=== PATIENT | female | born 2000 | race Caucasian/White ===

== ENCOUNTER 2022-03-17 14:49 | Outpatient (CLI) | payer BC, SELFPAY ==
--- OUTSIDE RECORDS SUMMARY | 2022-03-17 14:56 | XMS_ITS | Encounter Summary ---
:2000 [facility] Address [address], [place] [address] Care Team Providers Name Role Phone Unassigned, Provider Primary Care Provider Unavailable Reason for Visit Procedure/Equipment (Routine) - Incomplete Specialty Diagnoses / Procedures Referred By Contact Refer red To Contact Procedures Gamaliel Valentine MD Foreign Image(S) MR Extremity [id number] [facility] [place] [address] Referral ID Status Reason Start Date Expiration Date Visits V isits Requested Authorized [id number] Incomplete 06/07/2017 09/06/2018 1 1 Encounter Details Date Type Department Care Team Description 05/24/2017 Imaging [id number] RADIOLOGY CENTRAL FILM Mor Gamaliel lopez MD LIBRARY [address] [facility] [place] [address] [place] [address] [phone] (Work) Social History Tobacco Use Types Packs/Day Years Used Date Smoking Tobacco: Never Assessed Sex Assigned at Date Recorded Not on file documented as of this encounter Plan of Treatment Not on filedocumented as of this encounter Procedures Procedure Name Priority Date/Time Associated Diagnosis Comme nts FOREIGN IMAGE(S) MR Routine 05/24/2017 12:00 AM R esults for this EXTREMITY LT OFFSET PRESS ASSISTANT procedure are i n the results section. documented in this encounter Results Foreign Image(S) MR Extremity Lt (05/24/2017 12:00 AM OFFSET PRESS ASSISTANT) Specimen (Source) Anatomical Location Collection Method / Collectio n Time Received Time / Laterality Volume Narrative PN POCT - 06/07/2017 10:13 AM OFFSET PRESS ASSISTANT These outside images have been uploaded into PACS. If the results were provided, they will be located on the Me mariel tab in the patient's chart. Gamaliel Valentine MD RAD NON-REPORTABLES Performing Organization Address City/State/ZIP Code Phon e Number POCT PN POCT documented in this encounter Visit Diagnoses Not on filedocumented in this encounter Care Teams Manager Provider Relations Relationship Specialty Start Date End Date Unassigned, Provider PCP - General 06/12/[address] [place] [address] documented as of this encounter
--- OUTSIDE RECORDS SUMMARY | 2022-03-17 14:56 | XMS_ITS | Clinical Summary ---
:2000 Author Organization [facility] Address [address], [place] [address] Care Team Providers Name Role Phone Unassigned, Provider Primary Care Provider Unavailable Source Comments You are receiving this document as you are listed as the primary care provider,follow-up provider, or the patient has been referred to you for consultation.This is in compliance with the Medicare and Medicaid EHR Incentive Program,which states Providers who transition their patient to another setting of careor provider of care or refers their patient to another provider of care shouldprovide summarycare record for each transition of care or referral. [facility] Allergies No known active allergies Medications Medication Sig Dispensed Refills Start Date End Date Status azithromycin (ZITHROMAX) 250 MG 0 05/18/20 17 Active tablet STEVENSON FE 1.5 1.5-30 MG-MCG tablet 0 05/2017 Active desonide (DESOWEN) 0.05 % cream 0 05/21/20 17 Active Active Problems No known active problems Social History Tobacco Use Types Packs/Day Years Used Date Smoking Tobacco: Never Smokeless Tobacco: Never Sex Assigned at Date Recorded Not on file Last Filed Vital Signs Vital Sign Reading Time Taken Comments Blood Pressure - - Pulse - - Temperature - - Respiratory Rate - - Oxygen Saturation - - Inhaled Oxygen Concentration - - Weight 68.9 kg (152 lb) 06/07/2017 10:29 AM MILLINER HELPER Height 172.7 cm (5' 8) 06/07/2017 10:29 AM MILLINER HELPER Body Mass Index 23.11 06/07/2017 10:29 AM MILLINER HELPER Plan of Treatment Health Maintenance Due Date Last Done Comments Cervical Cancer Screening Due 1998 Chlamydia 1998 Hep C Screening (Preventive 1998 Services) HepB (1) 1998 COVID-19 Vaccine (#1) 1998 HPV Vaccine (1 - 2-dose series) 2009 HIV Screening (Preventive 2014 Services) Adult Preventive Visit 2016 DTaP/Tdap/Td (1 - Tdap) 2017 Influenza (#1) 2022 Zoster/Shingles (1 of 2) 2048 HepA Aged Out No longer eligib le based on patient's age to complete this topic Hib Aged Out No longer eligib le based on patient's age to complete this topic IPV (Polio) Aged Out No longer eligib le based on patient's age to complete this topic MCV4 Aged Out No longer eligib le based on patient's age to complete this topic Pneumococcal Aged Out No longer eligib le based on patient's age to complete this topic Insurance Payer Benefit Plan / Subscriber ID Effective Dates Phone Addre ss Type Group BCBS BCBS OUT OF [id number] 2014-Present [address] [address] [place] [address] MarkellLorenzo Personal/Family 07/31/1967 [address] [facility] (Home) [phone] [place], [place] (Work) [address] Care Teams Nurse Assessor Relationship Specialty Start Date End Date Unassigned, Provider PCP - General 06/12/[address] [place] [id number]
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
--- OUTSIDE RECORDS SUMMARY | 2022-03-17 14:56 | XMS_ITS | Encounter Summary ---
:2000 Author Organization [facility] Address [address] [place] [address] Care Team Providers Name Role Phone Reyes, Yoselyn Acfield Primary Care Provider [phone] Encounter Details Date Type Department Care Team Description 02/27/2019 Telephone [facility] Bertha Choi, [facility] Health & Addiction S [facility] [address] [place] [address] [place], [place] [phone] Social History Tobacco Use Types Packs/Day Years [...] Not on filedocumented as of this encounter Visit Diagnoses Not on filedocumented in this encounter Care Teams Paper Cone Machine Operator Relationship Specialty Start Date End Date Clinic, Yoselyn Katz PCP - General 02/25/19 [address] [place] [address] documented as of this encounter
--- OUTSIDE RECORDS SUMMARY | 2022-03-17 14:56 | XMS_ITS | Clinical Summary ---
:2000 Author Organization [facility] [place] [address] Care Team Providers Name Role Phone Ysabel Rodriguez Primary Care Provider [phone] Allergies No known active allergies Medications Medication Sig Dispensed Refills Start Date End Date Status norethin chito-eth Take 1 Tablet by 84 Tablet 3 08/19/2021 Active estrad-fe, 1.5-30 mouth once mg-mcg, (Eri Fe daily. .11/21, 28,) 1.5 mg-30 mcg (21)/75 mg (7) tabletIndications: Surveillance of previously prescribed contraceptive pill sertraline (ZOLOFT) 50 Take 1 Tablet 30 Tablet 0 11/23/2021 Active mg tabletIndications: (50 mg) by mouth Depression, major, every morning. single episode, moderate (HC), Anxiety Active Problems Problem Noted Date Alcohol abuse 03/04/2019 Cocaine use 03/04/2019 Genital herpes 01/28/2014 Resolved Problems Problem Noted Date Resolved Date Well child check 06/04/2013 03/04/2019 Immunizations Name Administration Dates Next Due AMB Influenza, IIV3 (Age >=3 years) 04/12/2012 Preserve Free (Flu Clinic Only) DTaP 11/04/2003, 1998, 1998, 1998 DTaP-HIB (TriHIBIT) 08/18/1999 HIB HbOC (HibTITER) 1998, 1998 HIB-HepB (Comvax) 1998 HPV 9 (Gardasil 9) 03/17/2019, 04/19/2017, 01/19/2017 Hepatitis B (Peds) 04/28/1999, 1998 Inactivated Polio Vaccine 11/04/2003, 05/01/2000, 1998 , 1998 Influenza, IIV3 (Age 6-35 mos) 04/12/2012, 04/18/2011 Influenza, IIV4 03/17/2019, 06/21/2016 MMR 11/04/2003, 08/18/1999 Meningococcal Vaccine (Menveo) 01/19/2017, 01/28/2014 Tdap 11/23/2010 Family History Medical History Relation Name Comments GI Disease Father silverio's Diabetes Maternal Grandfather Heart Disease Maternal Grandfather stents Diabetes Maternal Grandmother Good Health Mother Good Health Sister x2 Relation Name Status Comments Father Maternal Grandfather Maternal Grandmother Mother Sister Social History Tobacco Use Types Packs/Day Years Used Date Never Smoker Smokeless Tobacco: Never Used Tobacco Cessation: Counseling Given: Yes Alcohol Use Standard Drinks/Week Comments Yes 0 (1 standard drink = 0.6 oz pure alcoho l) Alcohol Habits Answer Date Recorded How often do you have a drink containing alcohol? 2-4 times a month 05/19/2020 How many drinks containing alcohol do you have on a 3 or 4 05/19/2020 typical day when you are drinking? How often do you have six or more drinks on one Never 05/19/2020 occasion? Comment: Not asked Sex Assigned at Date Recorded Not on file Obstetrics History Last Filed Vital Signs Vital Sign Reading Time Taken Comments Blood Pressure 126/84 11/23/2021 2:27 PM CDT Pulse 95 11/23/2021 2:27 PM CDT Temperature 37.2 ??C (99 ??F) 11/23/2021 2:27 PM CDT Respiratory Rate - - Oxygen Saturation 98% 11/23/2021 2:27 PM CDT Inhaled Oxygen Concentration - - Weight 65.3 kg (144 lb) 05/19/2020 4:11 PM [employer] TRAP Height 172.7 cm (5' 8) 04/23/2019 11:11 AM CDT Body Mass Index - - Plan of Treatment Health Maintenance Due Date Last Done Comments COVID-19 vaccine series (#1) 1998 Pneumococcal series for age 19-64 2004 (1 - PCV) Hepatitis C screening for age 1104/27/2016 18-79 BMI (ht and wt on same day) for 04/23/2020 04/23/2019, 02/24, age 18+ 05/18/2017, Additional history exists Tetanus booster 11/23/2020 11/23/2010 Chlamydia for age 16-24 05/19/2021 05/19/2020, 03/17/2019, 06/21/2016, Additional history exists Influenza for age 9-49 02/23/2022 03/17/2019, 06/21/2016, 04/12/2012 Pap test for age 21-65 03/17/2022 03/17/2019, 03/17/2019 Depression screening for age 12+ 08/19/2022 08/19/2021, , 04/23/2019, Additional history exists Tdap Completed 11/23/2010 HPV series for age 9-26 Completed 03/17/2019, 04/19/2017, 01/19/2017 Results Not on filefrom Last 3 Months Insurance Payer Benefit Plan / Subscriber ID Effective Dates Phone Addre ss Type Group BLUE [employer]OSS BLUE CROSS OF [id number] 2014-Present [address] [address] [place] [address] BLUE [employer]OSS BLUE CROSS OF [id number] 2021-Present [address] [address] [place] [address] (Home) [place] [address] Care Teams Project Safety Manager Relationship Specialty Start Date End Date Ysabel Rodriguez PA PCP - General Physician Gear Finisher 11/03/21 [address] [place] [address]
--- OUTSIDE RECORDS SUMMARY | 2022-03-17 14:56 | XMS_ITS | Encounter Summary ---
:1998 Author Organization [facility] Address [address] [place] [address] Care Team Providers Name Role Phone [facility] Primary Care Provider [phone] Encounter Details Date Type Department Care Team Description 02/25/2019 Travel Social History Tobacco Use Types Packs/Day Years [...] on filedocumented in this encounter Care Teams Budget Manager Relationship Specialty Start Date End Date [facility] PCP - General 02/25/[address] [place] [phone] documented as of this encounter
--- OUTSIDE RECORDS SUMMARY | 2022-03-17 14:56 | XMS_ITS | Encounter Summary ---
:2000 Author Organization [place] Address [address] [place] [id number] Care Team Providers Name Role Phone Clinic, [facility] Primary Care Provider [phone] Reason for Visit Reason Onset Date Comments MH Outpatient 02/26/2019 PHP vs IOP Encounter Details Date Type Department Care Team Description 02/26/2019 Telephone [facility] Generic, Behavioral MH Outpatient (PHP vs Behavioral Health Intake, IOP) Intake [address] [place] [address] Social History Tobacco Use Types Packs/Day Years [...] on file documented as of this encounter Miscellaneous Notes Telephone Encounter - Tila Mariscal - 02/26/2019 1:43 PM CDT 02-26-19 Keri godwin. Referral made to Adult OP DA ( PHP vs Day Tx). Marked as Ready to Schedule. fb Telephone Encounter - Tila Mariscal - 02/26/2019 9:27 AM CDT 02-26-19 Work Que () referral recv'd from [facility] Dr. Chaves referring client to PHP vs IOP (MH OP DA). Requested Bennies. kerr documented in this encounter Plan of Treatment Not on filedocumented as of this encounter Visit Diagnoses Not on filedocumented in this encounter Care Teams Corner Block Cutter Relationship Specialty Start Date End Date [facility], [facility] PCP - General 02/25/[address] [place] [id number] documented as of this encounter
--- OUTSIDE RECORDS SUMMARY | 2022-03-17 14:56 | XMS_ITS | Encounter Summary ---
:2000 Author Organization [place] Address [address] [place] [address] Care Team Providers Name Role Phone Reyes, Yoselyn Acfield Primary Care Provider [phone] Encounter Details Date Type Department Care Team Description 02/27/2019 Telephone [facility] Bertha Choi, [facility] Health & Addiction S [facility] [address] [place] [address] [place], [place] [address] [phone] Social History Tobacco Use Types Packs/Day Years [...] on filedocumented in this encounter Care Teams Electrical Engineering Director Relationship Specialty Start Date End Date Clinic, Yoselyn Katz PCP - General 02/25/19 [address] [place] [address] documented as of this encounter
--- OUTSIDE RECORDS SUMMARY | 2022-03-17 14:56 | XMS_ITS | Encounter Summary ---
:2000 [facility] Address [address], [place] [address] Care Team Providers Name Role Phone Unassigned, Provider Primary Care Provider Unavailable Reason for Visit Procedure/Equipment (Routine) - Incomplete Specialty Diagnoses / Procedures Referred By Contact Refer red To Contact Procedures Gamaliel Valentine MD Foreign Image(S) XR Extremity [id number] [place] [address] Referral ID Status Reason Start Date Expiration Date Visits V isits Requested Authorized [id number] Incomplete 06/07/2017 09/06/2018 1 1 Encounter Details Date Type Department Care Team Description 05/15/2017 Imaging [id number] RADIOLOGY CENTRAL FILM Mor Gamaliel lopez MD LIBRARY [address] [place] [address] [place] [address] Social History Tobacco Use Types Packs/Day Years Used Date Smoking Tobacco: Never Assessed Sex Assigned at Date Recorded Not on file documented as of this encounter Plan of Treatment Not on filedocumented as of this encounter Procedures Procedure Name Priority Date/Time Associated Diagnosis Comme nts FOREIGN IMAGE(S) XR Routine 05/15/2017 12:00 AM R esults for this EXTREMITY LT [employer] TE[employer]ER procedure are i n the results section. documented in this encounter Results Foreign Image(S) XR Extremity Lt (05/15/2017 12:00 AM [employer] TE[employer]) Specimen (Source) Anatomical Location Collection Method / Collectio n Time Received Time / Laterality Volume Narrative PN POCT - 06/07/2017 10:12 AM [employer] TE[employer]ER These outside images have been uploaded into PACS. If the results were provided, they will be located on the Me mariel tab in the patient's chart. Gamaliel Valentine MD RAD NON-REPORTABLES Performing Organization Address City/State/ZIP Code Phon e Number POCT PN POCT documented in this encounter Visit Diagnoses Not on filedocumented in this encounter Care Teams Test Developer Relationship Specialty Start Date End Date Unassigned, Provider PCP - General 06/12/[address] [place] [id number] documented as of this encounter
--- OUTSIDE RECORDS SUMMARY | 2022-03-17 14:56 | XMS_ITS | Encounter Summary ---
:2000 Author Organization [place] Address [address] [place] [address] Care Team Providers Name Role Phone Reyes, Yoselyn Acfield Primary Care Provider [phone] Encounter Details Date Type Department Care Team Description 02/26/2019 Telephone [facility] Bertha Choi, [facility] Health & Addiction S [facility] [address] [place] [address] [place], [place] [address] [phone] Social History Tobacco Use Types Packs/Day Years [...] on filedocumented in this encounter Care Teams Battery Container Tester Relationship Specialty Start Date End Date Clinic, Yoselyn Katz PCP - General 02/25/19 [address] [place] [address] documented as of this encounter
[2022-03-17 23:41] LABS: Chlamydia DNA Amplified* NOT DETECTED (No Detected); GC DNA Amplified* NOT DETECTED (No Detected)
== END 2022-03-17 14:50 | disposition home or self-care (01) ==
LOC: NFLDUCREF 14:49
PROVIDERS: PCP Family Medicine; Visit Provider Registered Nurse
DX: A64 Unspecified sexually transmitted disease (principal)
CPT/HCPCS: 87491; 87591

== ENCOUNTER 2024-09-30 23:48 | Inpatient (IN) | payer MEDICAID, SELFPAY ==
[2024-09-30 23:01] VITALS: BP 129/85; PULSE 99
[2024-09-30 23:02] VITALS: PULSE 97; O2SAT 98
[2024-09-30 23:31] LABS: Amnisure Rom* POSITIVE
[2024-09-30 23:52] VITALS: BMI 26.8
[2024-10-01] VITALS (72 sets, daily range): BP systolic 96–145; BP diastolic 50–97; PULSE 69–160; RESP 16–20; TEMP 36.4–37.2; O2SAT 97–100
[2024-10-01 01:51] LABS: Basophils Percent Auto 0.3 % (0.0-3.0); Eosinophils Percent Auto 1.2 % (0.0-7.0); Hematocrit 37.1 % (33.0-51.0); Hemoglobin* 12.1 gm/dL (12.0-16.0); Immature Granulocytes Pct Auto 0.9 %; Mean Corpuscular HGB Conc 33 gm/dL (32-36); Mean Corpuscular Hemoglobin 28 pg (26-34); Mean Corpuscular Volume 86 fL (80-100); Monocytes Percent Auto 8.7 % (0.0-11.0); Neutrophils Percent Auto 67.9 % (42.0-72.0); Platelet Count* 215 K/uL (140-440); Red Blood Count 4.34 m/uL (4.00-5.20); White Blood Count* 12.82 K/uL (4.50-11.00)
[2024-10-01 01:52] LABS: Slide Review Reflex No
[2024-10-01] MEDS: LACTATED RINGERS 1000 ML 1,000 ML 999 ML IV (01:52)
--- NOTE | 2024-10-01 03:23 | P.OBPN_ITS ---
Subjective Date Seen: 10/01/24 Narrative: I was called by bedside RN to review strip at 0254 Patient presented around midnight, 12 hours after AROM of clear fluid at home. Has progressed from 1-2 cm and is painfully figueroa. Objective Exam: Patient not examined Vital Signs: Last Vital Signs Temp 99 F 10/01/24 03:16 Pulse 88 10/01/24 03:16 Resp 20 10/01/24 03:16 BP 140/97 H 10/01/24 03:16 Pulse Ox 98 09/30/24 23:02 Pelvic Exam Dilation (cm): 2 Effacement (%): 80 Station: -1 Comments: Per RN Contractions Monitor mode: External Contraction Frequency: 1-6 minutes Contraction pattern: Irregular Contraction intensity: Strong/Firm Pitocin Rate (mU/min): 0 Assessment Assessment: early labor Station: -1 Amniotic Membrane Status: AROM Status: Category ll Heart Rate Baseline: 140 Retirement Variability: Minimal (3-5) Monitor Accelerations: Periodic Monitor Decelerations: Late Tracing Comments: Patient had category 2 tracing with minmal variability, occasional late decels. This occurred from 1am-2am. Position changes and fluid bolus were tried by RN. Fortunately, while reviewing strip patient's FHT improved to category 1. Moderate variability, Baseline 140. Late decels resolved, occasional variable decels. Labor Progress: Slow progress, requesting pain management Plan Plan: - given current improvement in status, will continue to monitor closely. I have requested RN call me to bedside if minimal variability returns/recurrent lates. - 1 elevated BP during assessment, if recurrent bp >140/90, would recommend pre- E labs. - pain management as requested by patient (fentanyl ok if category 1 strip per sists, otherwise epidural option as well) - anticipate NSVC
[2024-10-01] MEDS: LIDOCAINE 2% (PF) 5 ML VIAL EPIDURAL (04:06)
[2024-10-01] MEDS: ROPIVACAINE 0.2% 100 ml 100 ML 12 MG EPIDURAL ×2 (04:06→11:45)
--- NOTE | 2024-10-01 04:07 | P.ANBPRC_ITS ---
PFSH PFSH Social History Smoking Status: Former smoker Meds Home Medications and Allergies Home Medications ?Medication ?Instructions ?Recorded ?Confirmed ?Type norethindrone 1.5 mg-ethinyl 1 tab PO 03/17/22 03/17/22 History estradiol 30 mcg(21)/iron 75 mg(7) tablet ( (28)) acyclovir 400 mg tablet 400 mg PO 3XD 09/30/24 09/30/24 History aspirin 81 mg tablet,delayed 81 mg PO DAILY 09/30/24 09/30/24 History release Allergies Allergy/AdvReac Type Severity Reaction Status Date / Time No Known Drug Allergies Allergy Verified 03/17/22 14:21 Results Labs Labs: Laboratory Results - last 24 hr 09/30/24 10/01/24 23:12 01:40 WBC 12.82 H RBC 4.34 Hgb 12.1 Hct 37.1 MCV 86 MCH 28 MCHC 33 RDW Coeff of [place] 13.0 Plt Count 215 Neut % (Auto) 67.9 Lymph % (Auto) 21.0 [place] % (Auto) 8.7 Eos % (Auto) 1.2 Baso % (Auto) 0.3 Neut # (Auto) 8.70 H Lymph # (Auto) 2.70 [place] # (Auto) 1.10 H Eos # (Auto) 0.20 Baso # (Auto) 0.00 Abs Immat Gran (auto) 0.10 Imm/Tot Granulo (auto) 0.9 Membrane Rupture POSITIVE Blood Type O Positive Antibody Screen NEGATIVE Vital Signs Vital Signs: Last Vital Signs Temp 99 F 10/01/24 03:16 Pulse 117 H 10/01/24 04:06 Resp 20 10/01/24 03:16 BP 111/61 10/01/24 04:06 Pulse Ox 98 10/01/24 04:07 Weight: 82.372 kg Height: 175.26 cm Anesthesia Procedures Epidural Insertion Patient Location: OB Start Time: 03:45 Stop Time: 04:20 Start Date: 10/01/24 Stop Date: 10/01/24 Reason for Block: primary anesthetic Patient Position: sitting Performed By: Gamaliel Mccray Preanesthetic Checklist: IV checked, risks and benefits discussed, surgical consent, monitors and equipment checked, pre-op evaluation, timeout performed and anesthesia consent Prep: chlorhexidine gluconate Monitoring: blood pressure monitoring, locomotive firer/fireman, continuous pulse oximetry and heart rate Approach: midline Vertebral Space: lumbar (1-5) Needle Type: Tuohy needle Injection Technique: continuous catheter (catheter) Needle gauge: 17 Needle Length (cm): 10 cm Needle Insertion Depth (cm): 5 Catheter Gauge: 19 Catheter Type: multi-orifice Catheter at skin depth (cm): 10 Test Dose Result: negative and lidocaine 1.5% with epinephrine 1 to 200,000
[2024-10-01] MEDS: LACTATED RINGERS 1000 ML 1,000 ML 125 ML IV ×2 (04:47→08:48)
[2024-10-01] MEDS: OXYTOCIN 30 unit/500 ML in NS 30 UNIT/500 ML BAG IVPB (07:00)
--- NOTE | 2024-10-01 07:04 | P.OBHP_ITS ---
OB - H&P: HPI Labor/Induction History of Present Illness Date Seen: 10/01/24 Chief Complaint: The patient is a 24 year old 1 para 0 at 40.1 weeks gestation who presents with LOF. Chief complaint: Maternity : 1 Para: 0 Date of last menstrual period: 12/25/23 Estimated date of delivery: 09/30/24 Gestational age based on last menstrual period: 40 Narrative: Shirley Guillaume is a 24 year old at 40.1 weeks' who presented to L&D on 09/30/24 (40w0d) with LOF. Started experiencing leaking of clear fluid around 1300 and arrived to Center at 22:49. PMHx notable for history of cocaine use, initial UDS was negative. No ongoing use during . Has had weekly testing since 32 weeks. Received an epidural overnight for pain management. Has been resting comfortably since then. Fluid remains clear. No bleeding. Labs Blood type: O (+) positive Rubella: immune RPR/VDLR: nonreactive GBS status: negative HBsAG: negative Meds Home Medications and Allergies Home Medications ?Medication ?Instructions ?Recorded ?Confirmed ?Type norethindrone 1.5 mg-ethinyl 1 tab PO 03/17/22 03/17/22 History estradiol 30 mcg(21)/iron 75 mg(7) tablet (Junel FE 1.5/30 (28)) acyclovir 400 mg tablet 400 mg PO 3XD 09/30/24 09/30/24 History aspirin 81 mg tablet,delayed 81 mg PO DAILY 09/30/24 09/30/24 History release Allergies Allergy/AdvReac Type Severity Reaction Status Date / Time No Known Drug Allergies Allergy Verified 03/17/22 14:21 OB - H&P: Exam Physical Exam: Vital signs: Temp Pulse Resp BP Pulse Ox 98.8 F 90 20 104/57 L 100 10/01/24 06:06 10/01/24 06:59 10/01/24 03:16 10/01/24 06:59 10/01/24 04:37 Narrative: Gen: alert, NAD, appears comfortable Resp: breathing comfortably on room air, CTA b/l CV: RRR, extremities warm and well perfused Abd: gravid, nontender to palpation Cervix: 4/90/0 Fetus (Single): Station: 0 Amniotic Membrane Status: SROM Amniotic Membrane Fluid Description: Clear Heart Rate Baseline: 125 Monitor Accelerations: Present Monitor Decelerations: None Longterm Variability: Moderate (6-25) OB - Results Labs Labs: Short CBC 10/01/24 Range/Units 01:40 WBC 12.82 H (4.50-11.00) K/uL Hgb 12.1 (12.0-16.0) gm/dL Hct 37.1 (33.0-51.0) % Plt Count 215 (140-440) K/uL OB - Problem Based A/P Additional Plan (1) ROM (rupture of membranes), premature: Status: Acute (2) Term : Status: Acute Plan at 40.1w gestation who presented with PROM. SROM occurred at approx 1300 on 09/30. Comfortable with epidural. Had been having periods of minimal variability as well as some recurrent late decelerations initially that have improved/resolved wtih position changes and fluid boluses. Recommended starting Pitocin for labor augmentation. Reviewed risks of prolonged ROM. Patient is agreeable. Had several elevated BPs (140s/90s) earlier in hospital course. Pre-eclampsia labs pending.
[2024-10-01 07:40] LABS: Alanine Aminotransferase* 18 U/L (4-35); Aspartate Amino Transferase* 36 U/L (12-35); Creatinine* 0.5 mg/dL (0.5-1.5); Est. Creatinine Clearance* 178.19; Estimated Glomerular Filt Rate 133 ml/min
[2024-10-01] MEDS: PHENYLEPHRINE 100 MCG/ML SYRINGE IVP ×2 (07:55→08:46)
[2024-10-01 09:43] LABS: Total Protein Urine 14 mg/dL
[2024-10-01 09:44] LABS: Creatinine Urine 27.9 mg/dL
--- NOTE | 2024-10-01 11:28 | P.OBPN_ITS ---
Subjective Time Seen by Provider: 11: Date Seen: 10/01/24 Narrative: Pt remains comfortable, has been feeling more pressure during contractions. Objective Exam: Gen: alert, comfortable, NAD Vital Signs: Last Vital Signs Temp 98.5 F 10/01/24 09:30 Pulse 89 10/01/24 11:15 Resp 16 10/01/24 09:30 BP 117/72 10/01/24 11:15 Pulse Ox 97 10/01/24 07:55 Pelvic Exam Dilation (cm): 9.5 Effacement (%): 100 Station: +1 Comments: anterior lip Contractions Monitor mode: External Contraction Frequency: Q2-3 min Contraction pattern: Regular Contraction intensity: Strong/Firm Pitocin Rate (mU/min): 12 Assessment Assessment: active labor Station: +1 Amniotic Membrane Status: SROM Status: Category ll Heart Rate Baseline: 145 Filling Hauler Weaving Variability: Moderate (6-25) Monitor Accelerations: Absent Tracing Comments: early & late decelerations Plan Plan: Continue Pitocin. Anticipate .
--- NOTE | 2024-10-01 14:01 | W.PM.VAGDEL1 ---
Procedure Delivery date: 10/01/24 Procedure Done: Global Events: Labor Augmentation and Premature Rupture of Membrane Intrapartal Events: Labor Augmentation and ROM >18 Hours Delivery augmentation: pitocin Delivery monitor: external FHT and external uterine Route of delivery: Estimated blood loss (mL): 100 Anesthesia type: Epidural Disposition: floor Narrative: Patient is a G1 now P1 who presented for PROM/SROM at 40 weeks' gestation. course is notable for history of substance use (cocaine) prior to . She progressed in labor with pitocin. There were periods of minimal variability and late decelerations during labor which responded to fluid boluses and repositioning. She received an epidural for analgesia. She was found to have an anterior lip at 11:51 AM that was easily reduced during her first pushes. Has had several elevated BPs in the 140s/90s during labor and protein-creatinine ratio was 0.5 on catheterized specimen, meeting criteria for diagnosis of pre-eclampsia. She pushed effectively and delivered a viable female infant at 13:39. There were complications. There were bilateral periurethral tears that were hemostatic, so no repair was required. She received Pitocin post-. Bleeding was appropriate. There was a 3-vessel cord and placenta appeared intact. [place] Infant Infant Gender: Female presentation: vertex Placental Delivery Description: Spontaneous Cord Description: 3 Vessels
[2024-10-02 00:23] VITALS: BP 123/73; PULSE 91; RESP 16; TEMP 36.8
[2024-10-02 04:35] VITALS: BP 127/80; PULSE 90; RESP 16; TEMP 36.7
[2024-10-02 05:27] LABS: Basophils Percent Auto 0.3 % (0.0-3.0); Eosinophils Percent Auto 1.2 % (0.0-7.0); Hematocrit 33.1 % (33.0-51.0); Hemoglobin* 10.7 gm/dL (12.0-16.0); Immature Granulocytes Pct Auto 0.7 %; Mean Corpuscular HGB Conc 32 gm/dL (32-36); Mean Corpuscular Hemoglobin 28 pg (26-34); Mean Corpuscular Volume 87 fL (80-100); Monocytes Percent Auto 7.8 % (0.0-11.0); Platelet Count* 219 K/uL (140-440); RDW Coefficient of Variation % 13.2 % (11.5-15.5); Red Blood Count 3.79 m/uL (4.00-5.20); White Blood Count* 17.01 K/uL (4.50-11.00)
[2024-10-02 05:32] LABS: Slide Review Reflex No
[2024-10-02 05:41] LABS: Alanine Aminotransferase* 17 U/L (4-35); Aspartate Amino Transferase* 37 U/L (12-35); Creatinine* 0.7 mg/dL (0.5-1.5); Est. Creatinine Clearance* 127.28; Estimated Glomerular Filt Rate 122 ml/min
[2024-10-02] MEDS: ACETAMINOPHEN 500 MG TABLET 1000 MG PO (07:34)
[2024-10-02] MEDS: DOCUSATE SODIUM 100 MG CAPSULE PO (07:38)
[2024-10-02 08:00] VITALS: BP 115/77; PULSE 88; RESP 16; O2SAT 98
[2024-10-02 09:15] LABS: Rapid Plasma Reagin (RPR) Non Reactive (Non Reactive)
--- NOTE | 2024-10-02 11:08 | PM.ANPOST ---
Post Anesthesia Note Post Anesthesia Note Patient seen: Inpatient Respiratory Status: adequate Cardiovascular Status: adequate Mental Status: baseline Pain: adequate Temp: baseline Anesthetic awareness: N/A Complications: none Follow care: none
[2024-10-02 13:00] VITALS: BP 123/79; PULSE 80; RESP 16; TEMP 36.6; O2SAT 98
[2024-10-02] MEDS: IBUPROFEN 600 MG TABLET PO (15:32)
--- NOTE | 2024-10-02 16:30 | P.DS_ITS ---
DS: Providers Provider Date Seen: 10/02/24 Date of admission: 09/30/24 23:48 Primary care physician: Silvia Shields DO Admitting Clinician: Lia Baker MD Attending Physician on discharge: Silvia Shields DO Date of Discharge: 10/02/24 Exam Narrative: Exam Narrative: Gen: alert, pleasant, NAD Resp: CTA b/l, breathing comfortably on room air Heart: RRR, no murmurs Abd: fundus firm. No RUQ tenderness Extremities: trace LE edema Neuro: moves all extremities equally Const: Vital Signs, click to edit/add: Vital Signs - 24 hr 10/01/24 19:45 10/02/24 00:23 10/02/24 04:35 Temperature 98.2 F 98.2 F 98.0 F Pulse Rate [Right Blood Pressure Cuf f] 91 91 90 Respiratory Rate 16 16 16 Blood Pressure [Ri ght Arm] 123/80 123/73 127/80 Pulse Oximetry Oxygen Delivery Me thod Room Air Room Air Room Air 10/02/24 08:00 Temperature Pulse Rate [Right Blood Pressure Cuf f] 88 Respiratory Rate 16 Blood Pressure [Ri ght Arm] 115/77 Pulse Oximetry 98 Oxygen Delivery Me thod Room Air OB - DS: Summary Hospital Course Hospital Course: The patient is a 24 year old G 1 P 1 who delivered at 40.1 weeks gestation. She was admitted to the Center on 09/30/24 for SROM/PROM. Course was complicated by prolonged ROM (24 hours) and development of preeclampsia without severe features by blood pressures and elevated urine protein/creatinine ratio (0.5). She had a vaginal delivery with EBL 100 mL and b/l periurethral tears that were hemostatic and did not require repair. She delivered a viable female infant. She is breast feeding. the patient has done well. Blood pressures have been normal and labs have been stable. Peripartum Data Infant delivery method: Vaginal Laceration description: Periurethral - 1st Degree Gender: Female Infant Discharge Plan: Home Time Spent with Patient Time attestation: Total time spent providing and/or coordinating discharge services: Time spent: Greater than 30 minutes Discharge Plan Discharge Disposition: Home, Self-Care Date of Admission: 09/30/24 23:48 Primary Care Provider: Silvia Shields Condition: Stable Anticipated Discharge Date/Time: 10/02/24 16:38 Discharge Medications: New acetaminophen 500 mg Tablet 1,000 mg PO Q6H PRNQty: 60 0RF docusate sodium 100 mg Capsule 100 mg PO DAILY PRN (Reason: constipation) Qty: 30 0RF ibuprofen 600 mg Tablet 600 mg PO Q6H PRNQty: 60 0RF Discontinued norethindrone-e.estradiol-iron [ (28)] 1.5 mg-30 mcg (21)/75 mg (7) tablet 1 tab PO DAILY acyclovir 400 mg tablet 400 mg PO 3XD aspirin 81 mg tablet,delayed release (DR/EC) 81 mg PO DAILY Discharge Orders: Discharge Order (Routine); Ordered 10/02/24 Ordered By: Silvia Shields Patient Education: Preeclampsia and Eclampsia After Delivery (GEN), OB Vaginal/Breast Feeding Follow Up Appointments: Silvia Shields, [Primary Care Provider] - Forms: [facility] Info Instructions Discharge Comments: Follow up in [address] Shields. Continue to monitor for pre-eclampsia symptoms including headache, vision changes, right upper quadrant abdominal pain, and sudden changes in swelling. Monitor blood pressure periodically at home - goal of less than 140/90.
== END 2024-10-02 20:19 | disposition home or self-care (01) | DRG 806 ==
LOC: OB OUT 23:49 → OB 23:49
PROVIDERS: Admitting Provider Family Medicine; PCP Family Medicine; Visit Provider Family Medicine
DX: O14.04 Mild to moderate pre-eclampsia, complicating childbirth (principal); O98.32 Other infections with a predominantly sexual mode of transmission complicating childbirth; Z37.0 Single live birth; Z3A.40 40 weeks gestation of pregnancy; R03.0 Elevated blood-pressure reading, without diagnosis of hypertension; A60.09 Herpesviral infection of other urogenital tract; Z79.82 Long term (current) use of aspirin; O76 Abnormality in fetal heart rate and rhythm complicating labor and delivery; F14.11 Cocaine abuse, in remission
CPT/HCPCS: 01967; 36415; 82565; 82570; 84112; 84156; 84450; 84460; 85025; 86592; 86850; 86900; 86901; A9270; J2795; J7120